=== PATIENT | male | born 1990 | race Caucasian/White ===

== ENCOUNTER 2018-05-06 08:31 | Inpatient (IN) | payer OTHER ==
[~2018-05-06] VITALS: Ht 177.8 cm; Wt 92.2 kg
[~2018-05-06 08:31] MED LIST: ARIP10TA8 PO; VENL-68 PO
[2018-05-06] MEDS ORDERED: VILA20TA PO (10:20)
[2018-05-06 10:23] LABS: BASOPHILS % (AUTO) 0.6 % (0.0-2.0); EOSINOPHILS % (AUTO) 1.9 % (1.0-6.0); HEMATOCRIT 48.8 % (41-53); HEMOGLOBIN 17.3 g/dL (13.5-17.5); LYMPHOCYTES # (AUTO) 1.6 K/uL (1.0-4.8); LYMPHOCYTES % (AUTO) 23.1 % (22.0-44.0); MEAN CORPUSCULAR HEMOGLOBIN 31.3 pg (26.0-34.0); MEAN CORPUSCULAR HGB CONC 35.3 G/dL (31.0-37.0); MEAN CORPUSCULAR VOLUME 89 fL (80-100); MONOCYTES # (AUTO) 0.4 K/uL (0.1-1.0); MONOCYTES % (AUTO) 6.2 % (2.0-9.0); NEUTROPHILS # (AUTO) 4.8 K/uL (1.8-7.7); NEUTROPHILS % (AUTO) 68.2 % (40.0-70.0); PLATELET COUNT (AUTO) 352 K/uL (150-450); RED BLOOD CELL COUNT(AUTO) 5.52 MIL/uL (4.50-5.90); RED CELL DISTRIBUTION WIDTH 12.5 % (11.5-14.5)
[2018-05-06 10:36] LABS: ANION GAP 7 mmol/L (8-16); CALCIUM, TOTAL 9.6 mg/dL (8.8-10.5); CARBON DIOXIDE 30 mmol/L (22-29); CHLORIDE 103 mmol/L (98-107); CREATININE 1.23 mg/dL (0.60-1.30); GLOMERULAR FILTR. RATE CALC > 60 mL/min (>60); GLUCOSE,RANDOM 111 mg/dL (70-110); POTASSIUM 3.7 mmol/L (3.5-5.1); SODIUM SERUM 140 mmol/L (136-145); UREA NITROGEN, BLOOD 15 mg/dL (7-18)
[2018-05-06 10:44] LABS: ALANINE AMINOTRANSFERASE 74 U/L (12-78); ALBUMIN 4.3 g/dL (3.4-5.0); ALKALINE PHOSPHATASE 92 U/L (46-116); ASPARTATE AMINOTRANSFERASE 97 U/L (15-37); BILIRUBIN,TOTAL 0.6 mg/dL (0.1-1.0); TOTAL PROTEIN, SERUM 8.1 g/dL (6.4-8.2)
[2018-05-06 10:44] LABS: AMPHET/METH SCREEN,URINE NEGATIVE (NEGATIVE); BARBITURATE SCREEN, URINE NEGATIVE (NEGATIVE); BENZODIAZEPINES SCREEN,URINE NEGATIVE (NEGATIVE); CANNABINOID SCREEN,URINE NEGATIVE (NEGATIVE); COCAINE SCREEN,URINE NEGATIVE (NEGATIVE); METHADONE SCREEN, URINE NEGATIVE (NEGATIVE); OPIATE SCREEN,URINE NEGATIVE (NEGATIVE)
[2018-05-06 10:45] LABS: PHENCYCLIDINE SCREEN,URINE NEGATIVE (NEGATIVE)
[2018-05-06] MEDS ORDERED: ZOLPIDEM TARTRATE 10 MG TABLET PO PRN (12:15)
[2018-05-06] MEDS ORDERED: QUEtiapine FUMARATE 100 MG TABLET PO PRN (12:15)
[2018-05-06] MEDS ORDERED: LORazepam 2 MG TABLET PO PRN (12:15)
[2018-05-06 12:40] LABS: APPEARANCE,URINE CLEAR (CLEAR); BILIRUBIN,URINE NEGATIVE (NEGATIVE); GLUCOSE, URINE (UA) NEGATIVE (NEGATIVE); KETONES,URINE NEGATIVE (NEGATIVE); LEUKOCYTE ESTERASE ,URINE NEGATIVE (NEGATIVE); NITRATE,URINE NEGATIVE (NEGATIVE); OCCULT BLOOD,URINE NEGATIVE (NEGATIVE); PH,URINE 6.5 (5.0-8.0); PROTEIN,URINE POS 1+ (NEGATIVE); UROBILINOGEN,URINE 0.2 mg/dL (<=1.0)
[2018-05-06] MEDS ORDERED: TUBERCULIN, PURIFIED PROTEIN DERIVATIVE 5 TU/0.1 ML SYG ID ONE (16:15)
[2018-05-06] MEDS ORDERED: GuaiFENesin/D-METHORPHAN [SUGAR-FREE] 200-20MG/10 ML SYRUP UDCUP PO PRN (16:15)
[2018-05-06] MEDS ORDERED: MAG HYDROX/AL HYDROX/SIMETH ES 30 ML SUSPENSION UDCUP PO PRN (16:15)
[2018-05-06] MEDS ORDERED: LOPERAMIDE HCL 2 MG CAPSULE PO PRN (16:15)
[2018-05-06] MEDS ORDERED: PROMETHAZINE HCL 25 MG TABLET PO PRN (16:15)
[2018-05-06] MEDS ORDERED: MAGNESIUM HYDROXIDE SUSPENSION 30 ML UDCUP PO PRN (16:15)
[2018-05-06] MEDS ORDERED: ACETAMINOPHEN 325 MG TABLET PO PRN (16:15)
[2018-05-06] MEDS ORDERED: HydrOXYzine PAMOATE 50 MG CAPSULE PO PRN (16:15)
[2018-05-06] MEDS: THIAMINE HCL 100 MG TABLET PO SCH (18:00)
[2018-05-06 19:20] VITALS: BP 120/87
[2018-05-07 06:59] LABS: CHOL/HDL RATIO 4.5 (4.2-7.3); FREE T4 (FREE THYROXINE) 1.07 ng/dL (0.76-1.46); THYROID STIMULATING HORMONE 3.31 uIU/mL (0.36-3.74)
[2018-05-07 08:05] VITALS: BP 129/85
[2018-05-07] MEDS: LamoTRIgine 25 MG TABLET PO SCH ×2 (09:00→09:40)
[2018-05-07] MEDS: ARIPiprazole 5 MG TABLET PO SCH ×2 (09:00→09:42)
[2018-05-07] MEDS: THIAMINE HCL 100 MG TABLET PO SCH ×2 (09:39→16:28)
[2018-05-07] MEDS: FOLIC ACID 1 MG TABLET PO SCH (09:40)
[2018-05-07] MEDS: MULTIVITAMINS WITH MINERALS, THERAPEUTIC TABLET PO SCH (09:42)
[2018-05-07 17:00] VITALS: BP 145/86
[2018-05-08] MEDS: MULTIVITAMINS WITH MINERALS, THERAPEUTIC TABLET PO SCH (08:24)
[2018-05-08] MEDS: FOLIC ACID 1 MG TABLET PO SCH (08:24)
[2018-05-08] MEDS: THIAMINE HCL 100 MG TABLET PO SCH ×2 (08:24→18:30)
[2018-05-08] MEDS: LamoTRIgine 25 MG TABLET PO SCH (08:26)
[2018-05-08] MEDS: ARIPiprazole 5 MG TABLET PO SCH (08:26)
[2018-05-08 10:08] VITALS: BP 132/75
[2018-05-08] MEDS ORDERED: ESZOPICLONE 3 MG TABLET PO PRN (13:15)
[2018-05-08] MEDS ORDERED: LAMO25 PO (13:19)
[2018-05-08] MEDS ORDERED: *PATIENT'S OWN MED [ENTER DRUG, DOSE, FREQUENCY IN COMMENTS] CLINICAL SCH (16:00)
[2018-05-08] MEDS ORDERED: VIIBRYD 10 MG PO SCH (16:02)
[2018-05-08] MEDS ORDERED: VIIBRYD 20 MG PO SCH (16:02)
[2018-05-08 16:39] VITALS: BP 121/72
[2018-05-09] MEDS: FOLIC ACID 1 MG TABLET PO SCH (08:18)
[2018-05-09] MEDS: MULTIVITAMINS WITH MINERALS, THERAPEUTIC TABLET PO SCH (08:18)
[2018-05-09] MEDS: THIAMINE HCL 100 MG TABLET PO SCH (08:18)
[2018-05-09] MEDS: LamoTRIgine 25 MG TABLET PO SCH (08:18)
[2018-05-09 08:48] VITALS: BP 140/73
[2018-05-09] MEDS ORDERED: FOLI1 PO (10:44)
[2018-05-09] MEDS ORDERED: THIA100T67 PO (10:45)
[2018-05-09] MEDS ORDERED: MULT-1239 PO (10:45)
[2018-05-09] MEDS ORDERED: ESZO3 PO (10:48)
== END 2018-05-09 11:00 | disposition home or self-care (01) | DRG 885 ==
LOC: EMS 08:32 → 3EX 17:03
PROVIDERS: ADMIT Psychiatry & Neurology Psychiatry; ATTEND Psychiatry & Neurology Psychiatry
PROC: 3E0234Z Introduction of Serum, Toxoid and Vaccine into Muscle, Percutaneous Approach (ICD-10-PCS; principal; 2018-05-06)
DX: F33.2 Major depressive disorder, recurrent severe without psychotic features (principal); R45.851 Suicidal ideations; G47.00 Insomnia, unspecified; Z56.0 Unemployment, unspecified; Z91.14 Patient's other noncompliance with medication regimen; Z91.19 Patient's noncompliance with other medical treatment and regimen; Z23 Encounter for immunization
CPT/HCPCS: 84439; 84443; 90686; G0378; G0480